=== PATIENT | female | born 1975 | race Caucasian/White ===

== ENCOUNTER 2018-04-07 08:09 | Emergency (ER) | payer OTHER ==
[~2018-04-07] VITALS: Ht 167.6 cm; Wt 89.1 kg
[~2018-04-07 08:09] MED LIST: [UNRECOGNIZED DRUG - CODE]
[2018-04-07 08:19] VITALS: BP 128/75
--- NOTE | 2018-04-07 08:24 | NUR ---
PT AMBULATES TO BED 2
--- NOTE | 2018-04-07 08:34 | NUR ---
42 YO F BIB SELF W/C/O LBP X 2 DAYS. BILAT LBP ACHI NG AND DULL AND WITH INTERMITTENT SHOOTING PAIN ON R SIDE, R>L PAIN 5/10. -BRUSING, -SWELLING , - REDNESS NOTED. PT DENIES ANY RECENT TRAUUMA OR INJURY. PT WITH STEADY GAIT, BRISK CAP REFILLL, PALPABLE PEDLE PULSES. ER MD MADE AWARE. WILL CONTINUE TO MONITOR
--- NOTE | 2018-04-07 08:40 | NUR ---
DR WILSON AT BEDSIDE FOR PT EVALUATION
[2018-04-07] MEDS ORDERED: KETOROLAC 30 MG/ML VIAL IM ONE (08:45)
--- NOTE | 2018-04-07 08:55 | NUR ---
PT TO XRAY VIA W/C IN STABLE CONDITION WITH CREATIVE ART THERAPIST
--- NOTE | 2018-04-07 09:08 | NUR ---
PT BACE FROM XRAY
[2018-04-07 09:10] LABS: APPEARANCE,URINE SLIGHTLY HAZY (CLEAR); BILIRUBIN,URINE NEGATIVE (NEGATIVE); BLOOD, URINE NEGATIVE (NEGATIVE); COLOR,URINE YELLOW (YELLOW); UGLUCOSE NEGATIVE (NEGATIVE)
[2018-04-07 09:11] LABS: NITRITE, URINE NEGATIVE (NEGATIVE)
[2018-04-07 09:17] LABS: LEUKOCYTE ESTERASE ,URINE SMALL (NEGATIVE)
[2018-04-07 09:18] LABS: RBC,URINE 0-5 (RARE) /HPF (0-5)
[2018-04-07 09:19] LABS: WBC,URINE 6-15 (FEW) /HPF (0-5)
[2018-04-07 10:43] VITALS: BP 120/95
--- NOTE | 2018-04-07 10:43 | NUR ---
Patient discharged with v/s stable. Written and verbal after care instructions given and explained. Patient alert, oriented and verbalized understanding of instructions. Ambulatory with steady gait. All questions addressed prior to discharge. ID band removed. Patient advised to follow up with PMD. Rx of motrin, tramadol, prednisone given. Patient educated on indication of medication including possible reaction and side effects. Opportunity to ask questions provided and answered.
== END 2018-04-07 10:43 | disposition home or self-care (01) ==
LOC: MED 08:09
DX: M54.5 Low back pain (principal); Z79.899 Other long term (current) drug therapy
CPT/HCPCS: 74022; 81001; 81025; 87086; 96372; 99285; J1885